=== PATIENT | male | born 1970 | race Caucasian/White ===

== ENCOUNTER 2024-08-09 11:36 | Emergency (ER) | payer BC, SELFPAY ==
--- NOTE | ~2024-08-09 | XR_ITS ---
Right wrist Technique: PA, oblique, lateral, and ulnar deviation views were obtained. Clinical History: Limited range of motion, history of prior surgery Findings: No acute fracture or dislocation is seen. Suture anchors are noted at the scaphoid. There i s mild degenerative change of the triscaphe joint and first CMC joint. There is degenerative change a t the capitate lunate articulation. Chondrocalcinosis of the TFCC noted. Impression: No acute fracture or dislocation. Suture anchors at the scaphoid. Mild degenerative changes, as above. Reviewed, dictated and finalized at location . Impression: No acute fracture or dislocation. Suture anchors at the scaphoid. Mild degenerative changes, as above.
[2024-08-09 11:42] VITALS: BP 158/108; PULSE 99; RESP 18; TEMP 36.8; O2SAT 96
--- NOTE | 2024-08-09 12:06 | ED.GENADULT ---
HPI - General Adult General Chief complaint: Extremity Injury, Upper Stated complaint: wrist pain History of Present Illness HPI narrative: Umesh presented to the ED with pain and swelling in his left hand. He previously had surgery on this wrist and occasionally he wakes up and it is swollen and painful. NO trauma or falls. Related Data Home Medications Medication Instructions Recorded Confirmed No Home Medications 08/09/24 08/09/24 Allergies Allergy/AdvReac Type Severity Reaction Status Date / Time No Known Allergies Allergy Unknown Verified 08/09/24 11:47 Review of Systems Review of Systems: All systems reviewed & are unremarkable except as noted in HPI and below Exam Const: General: cooperative, healthy appearing, comfortable, no acute distress, well developed, alert, awake and Physically active Orientation/consciousness: oriented to person, oriented to place and oriented to time HENMT: Head: normal to inspection, normocephalic and atraumatic Ears: hearing grossly normal bilaterally and external ears normal Face/Nose/Sinus: Normal external nose present Eyes: General: appearance normal, both eyes and all related structures Periorbital: periorbital findings normal Sclera: sclerae normal Pupils: Equal, round and reactive pupils present Neck: Neck: normal visual inspection Chest: Chest palpation & inspection: normal inspection of the chest Resp: Effort & Inspection: normal respiratory effort, able to speak in complete sentences and no respiratory distress Cardio: Jugular venous distension: no JVD Skin: General skin exam: normal color and no rashes or lesions noted Neuro: General: oriented to person, oriented to place and oriented to time Cranial nerves: Yes Equal, round and reactive pupils present Extrem: General: normal to inspection Course Course Emergency Course: right wrist is swollen, warm and TTP. He declined meds for pain. Right wrist Technique: PA, oblique, lateral, and ulnar deviation views were obtained. Clinical History: Limited range of motion, history of prior surgery Findings: No acute fracture or dislocation is seen. Suture anchors are noted at the scaphoid. There is mild degenerative change of the triscaphe joint and first CMC joint. There is degenerative change at the capitate lunate articulation. Chondrocalcinosis of the TFCC noted. Impression: No acute fracture or dislocation. Suture anchors at the scaphoid. Mild degenerative changes, as above. CRP elevated but largely unremarkable otherwise. DDx includes tendonitis, ligament tear, gout vs other Vital Signs Vital signs: Vital Signs Temperature 98.2 F 08/09/24 11:42 Pulse Rate 99 08/09/24 11:42 Respiratory Rate 18 08/09/24 11:42 Blood Pressure 158/108 H 08/09/24 11:42 Pulse Oximetry 96 08/09/24 11:42 Oxygen Delivery Room Air 08/09/24 11:42 Temperature 97.8 F 08/09/24 12:54 Pulse Rate 83 08/09/24 12:54 Respiratory Rate 20 08/09/24 12:54 Blood Pressure 147/106 H 08/09/24 12:54 Pulse Oximetry 97 08/09/24 12:54 Oxygen Delivery Room Air 08/09/24 12:54 Medical Decision Making Vital Signs Vital Signs: Vital Signs Temperature 98.2 F 08/09/24 11:42 Pulse Rate 99 08/09/24 11:42 Respiratory Rate 18 08/09/24 11:42 Blood Pressure 158/108 H 08/09/24 11:42 Pulse Oximetry 96 08/09/24 11:42 Oxygen Delivery Room Air 08/09/24 11:42 Temperature 97.8 F 08/09/24 12:54 Pulse Rate 83 08/09/24 12:54 Respiratory Rate 20 08/09/24 12:54 Blood Pressure 147/106 H 08/09/24 12:54 Pulse Oximetry 97 08/09/24 12:54 Oxygen Delivery Room Air 08/09/24 12:54 Lab Data 08/09/24 12:07 08/09/24 12:07 Labs: Lab Results 08/09/24 Range/Units 12:07 WBC 7.4 (4.8-10.8) K/mm3 RBC 4.78 (4.70-6.10) M/mm3 Hgb 16.2 (14.0-18.0) g/dL Hct 45.7 (40.0-54.0) % MCV 95.6 (78.0-102.0) fL MCH 33.9 H (27.0-31.0) pg MCHC
[2024-08-09 12:13] LABS: Basophils Absolute Auto 0.05 K/mm3 (0.00-0.10); Basophils Percent Auto 0.7 % (0.0-1.0); Eosinophils Absolute Auto 0.09 K/mm3 (0.02-0.50); Eosinophils Percent Auto 1.2 % (1.0-6.0); Hematocrit 45.7 % (40.0-54.0); Hemoglobin 16.2 g/dL (14.0-18.0); Immature Granulocyte Absolute 0.03 K/mm3 (0.00-0.00); Immature Granulocyte Percent A 0.4 % (0.0-0.0); Lymphocytes Absolute Auto 1.48 K/mm3 (1.10-4.50); Mean Corpuscular HGB Conc 35.4 g/dL (32-36); Mean Corpuscular Hemoglobin 33.9 pg (27.0-31.0); Mean Corpuscular Volume 95.6 fL (78.0-102.0); Mean Platelet Volume 9.4 fl (8.7-11.0); Monocytes Absolute Auto 0.76 K/mm3 (0.10-0.90); Monocytes Percent Auto 10.3 % (2.0-11.0); Neutrophils Percent Auto 67.4 % (50.0-70.0); Platelet Count Result 230 K/mm3 (150-420); Red Blood Count 4.78 M/mm3 (4.70-6.10); Red Cell Distribution Width 12.6 % (11.6-14.4); White Blood Count 7.4 K/mm3 (4.8-10.8)
[2024-08-09 12:25] LABS: Alanine Aminotransferase 20 U/L (16-63); Albumin Level 3.6 g/dL (3.4-5.0); Alkaline Phosphatase 78 U/L (46-116); Anion Gap 7 mmol/L (4-12); Aspartate Amino Transferase 14 U/L (15-37); Bilirubin,Total 0.7 mg/dL (0.00-1.00); Blood Urea Nitrogen 11 mg/dL (7-18); Calcium 9.1 mg/dL (8.5-10.1); Carbon Dioxide 29 mmol/L (21-32); Chloride 99 mmol/L (98-108); Estimated CRCL calculation 100 ml/min; Estimated Glomerular Filt Rate > 60; Glucose 114 mg/dL (70-99); Osmolality Calculated 280 mOsm/kg (285-295); Potassium 3.9 mmol/L (3.5-5.1); Sodium 135 mmol/L (136-145); Total Protein 7.3 g/dL (6.4-8.2); Uric Acid 4.3 mg/dL (3.5-7.2)
[2024-08-09 12:31] LABS: CRP 2.7 mg/dL (0.0-0.9)
[2024-08-09 12:54] VITALS: BP 147/106; PULSE 83; RESP 20; TEMP 36.6; O2SAT 97
== END 2024-08-09 12:55 | disposition home or self-care (01) ==
PROVIDERS: Emergency Provider Family Medicine; PCP Emergency Medicine
DX: S63.502A Unspecified sprain of left wrist, initial encounter (principal); X58.XXXA Exposure to other specified factors, initial encounter
CPT/HCPCS: 36415; 73110; 80053; 84550; 85025; 86140; 99283